=== PATIENT | female | born 1990 | race Caucasian/White ===

== ENCOUNTER 2019-03-30 12:36 | Inpatient (IN) ==
[2019-03-30] MEDS ORDERED: REGLAN PO ONE (13:12)
[2019-03-30] MEDS ORDERED: LR 500 ML IV ONE (13:12)
[2019-03-30] MEDS ORDERED: STADOL IV PRN (13:12)
[2019-03-30] MEDS ORDERED: PEPCID IV PRN (13:12)
[2019-03-30] MEDS ORDERED: ZOFRAN IV PRN (13:12)
[2019-03-30] MEDS ORDERED: TYLENOL PO PRN (13:12)
[2019-03-30] MEDS ORDERED: KEFZOL 1 GM/D5W 1 GM/50 ML IVPB IV PRN (13:12)
[2019-03-30] MEDS ORDERED: PEPCID PO ONE (13:12)
[2019-03-30] MEDS ORDERED: PITOCIN 30 UNITS/NS 30 UNIT/500 ML IV.SOLN IV SCH ×2 (13:15→20:15)
[2019-03-30] MEDS ORDERED: SODIUM CHLORIDE 0.9% INJ SCH (13:15)
[2019-03-30] MEDS ORDERED: LR 1,000 ML IV SCH (13:15)
[2019-03-30] MEDS ORDERED: AMPICILLIN 2 GM in NS 100 ML IV ONE (13:23)
[2019-03-30 14:02] LABS: URINE SOURCE VOIDED
[2019-03-30 14:05] LABS: BASO# 0.02 X1000 (0.0-0.2); BASO% 0.3 % (0.0-0.8); EOS# 0.11 X1000 (0.0-0.7); EOS% 1.6 % (0.0-10.0); HEMATOCRIT 28.6 % (37.0-47.0); HEMOGLOBIN 8.7 g/dL (12.0-16.0); IMM GRAN# 0.02 X1000 (0.0-0.04); IMM GRAN% 0.3 % (0.0-0.5); LYMPH# 1.23 X1000 (1.2-3.4); LYMPH% 17.8 % (20.5-51.1); MCH 24.5 PG (27-31); MCHC 30.4 g/dL (33-37); MCV 80.6 FL (81-99); MONO# 0.56 X1000 (0.11-0.59); MONO% 8.1 % (1.7-9.3); MPV 11.8 FL (7.4-10.4); NEUT# 4.98 X1000 (1.4-6.5); NEUT% 71.9 % (42.2-75.2); PLT 209 X1000 (130-400); RBC 3.55 XMIL (4.2-5.4); RDW 16.1 % (11.5-14.5); WBC 6.92 X1000 (4.8-10.8)
[2019-03-30 14:09] LABS: BILIRUBIN URINE NEGATIVE (NEGATIVE); BLOOD URINE NEGATIVE (NEGATIVE); COLOR YELLOW; GLUCOSE URINE NEGATIVE (NEGATIVE); KETONE URINE NEGATIVE (NEGATIVE); LEUKOCYTES URINE LARGE (NEGATIVE); NITRITE URINE NEGATIVE (NEGATIVE); PH URINE 6.5; PROTEIN URINE TRACE mg/dL (NEGATIVE); SP GRAVITY URINE 1.019; TURBIDITY URINE HAZY (CLEAR); UROBILINOGEN URINE NORMAL (NORMAL)
[2019-03-30 14:30] LABS: ANISOCYTOSIS OCCASIONAL; BANDS 1 % (0-1); EOS 5 % (1-10); LARGE PLATELETS OCCASIONAL; LYMPHS 15 % (21-51); MONO 1 % (1-9); SEGS 78 % (42-75)
[2019-03-30] MEDS ORDERED: NAROPIN 0.2% INJ ONE (15:15)
[2019-03-30] MEDS ORDERED: FENTANYL-BUPIV-NS 500 MCG-0.125% 250 ML EPIDURAL SCH (16:00)
[2019-03-30] MEDS ORDERED: NAROPIN 0.5% INJ ONE (17:12)
[2019-03-30] MEDS ORDERED: AMPICILLIN 1 GM in NS 50 ML IV SCH (18:00)
--- NOTE | 2019-03-30 18:12 | HISTORY AND PHYSICAL ---
HISTORY OF PRESENT ILLNESS: The patient is a 28-year-old white female, G6, P3, A2, 39 and 3/7 weeks, seen in the office today and was noted to be 4 to 5 cm dilated. care is significant for anemia. PAST MEDICAL HISTORY: Unremarkable. PAST SURGICAL HISTORY: Cholecystectomy and D and C. PAST OB HISTORY: G6, P3, A2. Spontaneous vaginal delivery x3. Her largest infant was 6 pounds 11 ounces. Spontaneous x2. [employer]ATOR HISTORY: Menarche at age 15. REVIEW OF SYSTEMS: All systems reviewed and noncontributory. FAMILY HISTORY: Significant for thyroid dysfunction. SOCIAL HISTORY: Tobacco use rare. Alcohol use none. MEDICATIONS: vitamins. ALLERGIES: No known drug allergies. PHYSICAL EXAMINATION: VITAL SIGNS: Height 5 feet 3 inches, weight 251 pounds, temperature 98.3 degrees, blood pressure 136/82, pulse of 90, respirations 18. heart rate in the 130s with positive accelerations. HEENT: Pupils equal, round, reactive to light and accommodation. Extraocular movements intact. Oropharynx clear. NECK: Supple. No thyromegaly. LUNGS: Clear to auscultation. HEART: Regular rate and rhythm. ABDOMEN: Gravid, nontender. Cervix was noted to be 4 to 5 cm, 60% effaced, -2 station. Vertex presentation noted. EXTREMITIES: Mild lower extremity edema noted and bilateral DTRs were 1+. ASSESSMENT AND PLAN: 28-year-old white female, 6, para 3, abortus 2, at 39 and 3/7 weeks in early labor. The patient will be sent to Labor and Delivery and we will augment her labor with Pitocin. Her group B strep culture was positive and she will be given antibiotic therapy in labor. cc: Jeremy Patel III, MD
[2019-03-30 18:56] LABS: UR AMPHETAMINES QUAL NONE DETECTED (NONE DETECT); UR BARBITUATES QUAL NONE DETECTED (NONE DETECT); UR BENZODIAZEPIN QUAL NONE DETECTED (NONE DETECT); UR CANNABINOIDS QUAL NONE DETECTED (NONE DETECT); UR COCAINE QUAL NONE DETECTED (NONE DETECT); UR METHADONE QUAL NONE DETECTED (NONE DETECT); UR OPIATES QUAL NONE DETECTED (NONE DETECT); UR OXYCODONE QUAL NONE DETECTED (NONE DETECT); UR PCP QUAL NONE DETECTED (NONE DETECT)
[2019-03-30] MEDS ORDERED: MINERAL OIL MISC ONE (19:01)
[2019-03-30] MEDS ORDERED: XYLOCAINE-MPF 1% INJ ONE (19:01)
[2019-03-30] MEDS ORDERED: MORPHINE ONE (19:46)
[2019-03-30] MEDS ORDERED: MORPHINE IV ONE (20:00)
[2019-03-30] MEDS ORDERED: NORCO-10 PO PRN (20:02)
[2019-03-30] MEDS ORDERED: ATARAX PO PRN (20:02)
[2019-03-30] MEDS ORDERED: PERI MEDS (DERMOPLAST/NUPERCAINAL/TUCKS) MISC PRN (20:02)
[2019-03-30] MEDS ORDERED: AMBIEN PO PRN (20:02)
[2019-03-30] MEDS ORDERED: XYLOCAINE-MPF 1% INJ PRN (20:02)
[2019-03-30] MEDS ORDERED: NORCO-5 PO PRN (20:02)
[2019-03-30] MEDS ORDERED: CYTOTEC PO PRN (20:02)
[2019-03-30] MEDS ORDERED: MINERAL OIL PO PRN (20:02)
[2019-03-30] MEDS ORDERED: HYDROXYZINE IM PRN (20:02)
[2019-03-30] MEDS ORDERED: PITOCIN IM PRN (20:02)
[2019-03-30] MEDS ORDERED: BOOSTRIX VACCINE IM ONE (20:02)
[2019-03-30] MEDS ORDERED: BENADRYL IV PRN (20:02)
[2019-03-30] MEDS ORDERED: BENADRYL PO PRN (20:02)
[2019-03-30] MEDS ORDERED: M-M-R II VACCINE SUBQ ONE (20:02)
[2019-03-30] MEDS ORDERED: PITOCIN 20 UNITS/NS 20 UNITS/1,000 ML IV.SOLN IV SCH (20:15)
[2019-03-30] MEDS ORDERED: PEPCID PO PRN (21:00)
[2019-03-30] MEDS: PERICOLACE PO SCH (21:48)
[2019-03-31 06:42] LABS: BASO# 0.01 X1000 (0.0-0.2); BASO% 0.1 % (0.0-0.8); EOS# 0.11 X1000 (0.0-0.7); EOS% 1.3 % (0.0-10.0); HEMATOCRIT 27.7 % (37.0-47.0); HEMOGLOBIN 8.2 g/dL (12.0-16.0); IMM GRAN# 0.05 X1000 (0.0-0.04); IMM GRAN% 0.6 % (0.0-0.5); LYMPH# 1.47 X1000 (1.2-3.4); LYMPH% 17.1 % (20.5-51.1); MCH 24.3 PG (27-31); MCHC 29.6 g/dL (33-37); MONO# 0.56 X1000 (0.11-0.59); MONO% 6.5 % (1.7-9.3); MPV 11.1 FL (7.4-10.4); NEUT# 6.42 X1000 (1.4-6.5); NEUT% 74.4 % (42.2-75.2); PLT 199 X1000 (130-400); RBC 3.38 XMIL (4.2-5.4); RDW 15.9 % (11.5-14.5); WBC 8.62 X1000 (4.8-10.8)
--- NOTE | 2019-03-31 06:55 | OPERATIVE NOTE ---
PROCEDURE DATE: 03/30/2019 DELIVERY NOTE: The patient progressed to complete and pushing, and had a spontaneous vaginal delivery of a male , 8 pounds 4 ounces, with Apgars of 9 and 9 at 1937 on 03/30/2019 over a first-degree vaginal tear. Cord blood sample was obtained at this time. Placenta delivered intact with 3-vessel cord. First-degree vaginal tear repaired with 3-0 chromic. ANESTHESIA: 3 mL of 1% lidocaine after the initial epidural had quit working. ESTIMATED BLOOD LOSS: 200 mL. COUNTS: All counts were correct x2. cc: Jeremy Patel III, MD
[2019-03-31] MEDS: FERROUS SULFATE PO SCH (09:03)
[2019-03-31] MEDS: MOTRIN PO PRN ×2 (09:03→20:04)
[2019-03-31] MEDS: ROBITUSSIN PO PRN ×2 (09:42→22:39)
[2019-03-31] MEDS ORDERED: TYLENOL PO PRN (11:49)
[2019-03-31] MEDS: PERICOLACE PO SCH (20:04)
[2019-04-01] MEDS: ROBITUSSIN PO PRN (07:22)
[2019-04-01] MEDS: MOTRIN PO PRN (07:30)
[2019-04-01 07:38] VITALS: BP 157/70
[2019-04-01] MEDS: FERROUS SULFATE PO SCH (09:42)
[2019-04-01] MEDS ORDERED: BOOSTRIX VACCINE IM ONE (10:47)
== END 2019-04-01 19:47 | disposition home or self-care (01) | DRG 807 ==
LOC: LD 12:36
PROVIDERS: ADMIT Obstetrics & Gynecology; ATTEND Obstetrics & Gynecology